=== PATIENT | male | born 1975 | race Caucasian/White ===

== ENCOUNTER 2023-06-17 18:44 | Emergency (ER) | payer OTHER ==
[~2023-06-17] VITALS: Ht 177.8 cm; Wt 98.9 kg
[2023-06-17 19:08] VITALS: BP_SYST 134; PULSE 68; RESP 18; TEMP 97; O2SAT 98
[2023-06-17] MEDS ORDERED: LIDOCAINE 1% *INHALATION* MPF 5 ML VIAL INH ONE (19:30)
[2023-06-17] MEDS ORDERED: LIDOCAINE 1% 10 MG/ML, 20 ML MDV INJ ONE (19:30)
[2023-06-17] MEDS ORDERED: BACITRACIN 1 GM OINT TP ONE (19:30)
[2023-06-17 19:52] VITALS: BP_SYST 139; PULSE 64; RESP 20; TEMP 97.7; O2SAT 98
== END 2023-06-17 19:52 | disposition home or self-care (01) ==
LOC: SED 18:44
DX: S61.012A Laceration without foreign body of left thumb without damage to nail, initial encounter (principal); Z79.899 Other long term (current) drug therapy; W29.0XXA Contact with powered kitchen appliance, initial encounter; Y93.89 Activity, other specified; Y92.89 Other specified places as the place of occurrence of the external cause; Y99.8 Other external cause status
CPT/HCPCS: 99282; 12002; J2001 ×2